=== PATIENT | female | born 1990 | race Caucasian/White ===

== ENCOUNTER → 2018-06-16 | Outpatient (CLI) | payer OTHER | LOC: COL.RAD 09:16 | DX: M25.462 Effusion, left knee (principal) ==

== ENCOUNTER → 2020-11-12 | Outpatient (CLI) | payer OTHER | LOC: COL.RAD 13:08 | DX: M66.0 Rupture of popliteal cyst (principal); M24.10 Other articular cartilage disorders, unspecified site; M24.19 Other articular cartilage disorders, other specified site; M65.88 Other synovitis and tenosynovitis, other site; M25.462 Effusion, left knee; M23.307 Other meniscus derangements, unspecified meniscus, left knee; S83.412A Sprain of medial collateral ligament of left knee, initial encounter ==